=== PATIENT | male | born 1945 | race American Indian/Alaskan Native ===

== ENCOUNTER 2016-04-03 10:26 | Outpatient (CLI) | payer MEDICARE ==
--- NOTE | 2016-04-03 13:45 | XRay Report ---
CHEST 2 VIEWS INDICATION: Cough. COMPARISON: 11/20/2015. FINDINGS: PA and lateral chest radiographs now demonstrate better inspiration with normal cardiomediastinal silhouette. Clear, well-expanded lungs. Interval resolution of pneumoperitoneum. Multilevel spinal degenerative changes. CONCLUSION: No acute disease in the chest. Thank you for the opportunity to participate in this patient's care.
== END 2016-04-03 10:27 | disposition home or self-care (01) ==
LOC: XRAY 10:26
PROVIDERS: ATTEND Internal Medicine Hematology & Oncology
DX: R05 Cough (principal); M47.899 Other spondylosis, site unspecified
CPT/HCPCS: 71020

== ENCOUNTER 2017-07-12 11:46 | Outpatient (CLI) | payer MEDICARE ==
--- NOTE | 2017-07-12 13:15 | XRay Report ---
ROUTINE CHEST, TWO VIEWS: HISTORY: Cough, smoking history. The trachea, heart, mediastinal contour, lung cortes and bony thorax are unremarkable. No change is appreciated since 04/03/16. IMPRESSION: Unremarkable chest x-ray.
== END 2017-07-12 11:47 | disposition home or self-care (01) ==
LOC: XRAY 11:46
PROVIDERS: ATTEND Internal Medicine Hematology & Oncology
DX: R05 Cough (principal); Z87.891 Personal history of nicotine dependence; Z79.899 Other long term (current) drug therapy
CPT/HCPCS: 71046